=== PATIENT | female | born 1955 | race Caucasian/White ===

== ENCOUNTER → 2017-06-05 | Outpatient (CLI) | payer BC ==
--- NOTE | 2017-06-05 17:52 | RAD ---
EXAM: MAMMO GABRIELLA SCREENING BILATERAL. HISTORY: Screening. COMPARISON: Breast mammogram from 2015 and 2014. FINDINGS: 2-D and 3-D tomosynthesis mammograms were obtained of both breasts in the CC and MLO projections. Computer-aided detection (CAD) was utilized. Breast density category C: The breasts are heterogeneously dense which may obscure small masses. The nipples and skin are within normal limits. Stable bilateral round masses are seen dating back to 2014. No suspicious calcifications, spiculated masses or areas of architectural distortion. IMPRESSION: No mammographic evidence of malignancy. Stable mammogram. BI-RADS CATEGORY: 2 BENIGN FINDING RECOMMENDED FOLLOW-UP: 12M 12 MONTH FOLLOW-UP PQRS compliance statement: Patient information was entered into a reminder system with a target due date 06/05/2018 for the next mammogram. Mammography is a sensitive method for finding small breast cancers, but it does not detect them all and is not a substitute for careful clinical examination. A negative mammogram does not negate a clinically suspicious finding and should not result in delay in biopsying a clinically suspicious abnormality. "Our facility is accredited by the [employer] Mammography Program."
== END | disposition home or self-care (01) ==
LOC: MAMMO 14:46
PROVIDERS: ATTEND Physician Assistant
DX: Z12.31 Encounter for screening mammogram for malignant neoplasm of breast (principal); Z85.3 Personal history of malignant neoplasm of breast
CPT/HCPCS: 77063; G0202; 77067

== ENCOUNTER → 2017-07-10 | Outpatient (CLI) | payer BC ==
--- NOTE | 2017-07-10 15:35 | RAD ---
Chest, 2 views, 07/10/2017: History: Dyspnea The heart size and pulmonary vascularity are normal. There appears to be minimal atelectasis along the dome of the left hemidiaphragm. No pulmonary consolidation is seen. There is no evidence of pleural fluid. Moderate spurring is present in the spine. IMPRESSION: Minimal left basilar atelectasis.
== END | disposition home or self-care (01) ==
LOC: PMG 14:50
PROVIDERS: ATTEND Physician Assistant
DX: J98.11 Atelectasis (principal)
CPT/HCPCS: 71046

== ENCOUNTER → 2018-06-10 | Outpatient (CLI) | payer BC ==
--- NOTE | 2018-06-11 09:16 | RAD ---
DATE: 06/10/2018 EXAM: MAMMO GABRIELLA SCREENING BILATERAL HISTORY: Routine screening COMPARISON: 06/05/2017 This study was interpreted with the benefit of Computerized Aided Detection (CAD). Breast Density: HETERO The breast parenchyma is heterogenously dense, which could reduce sensitivity of mammography. Breast parenchyma level C. FINDINGS: The breasts are heterogeneously dense in a multinodular pattern. There are numerous smooth nodules in both breasts. Bilateral smooth nodule such as this are most commonly benign. No spiculated mass or architectural distortion is evident. No enlarging breast densities are seen. Benign type calcifications are present. No suspicious microcalcifications have developed. IMPRESSION: Stable mammograms without evidence of malignancy. BI-RADS CATEGORY: 2 BENIGN FINDING(S) RECOMMENDED FOLLOW-UP: 12M 12 MONTH FOLLOW-UP PQRS compliance statement: Patient information was entered into a reminder system with a target due date for the next mammogram. Mammography is a sensitive method for finding small breast cancers, but it does not detect them all and is not a substitute for careful clinical examination. A negative mammogram does not negate a clinically suspicious finding and should not result in delay in biopsying a clinically suspicious abnormality. "Our facility is accredited by the [employer] Mammography [employer]."
== END | disposition home or self-care (01) ==
LOC: MAMMO 14:56
PROVIDERS: ATTEND Physician Assistant
DX: Z12.31 Encounter for screening mammogram for malignant neoplasm of breast (principal)
CPT/HCPCS: 77063; 77067

== ENCOUNTER → 2018-06-12 | Outpatient (CLI) | payer BC ==
--- NOTE | 2018-06-13 08:15 | RAD ---
Bone densitometry scan, 06/12/2018: HISTORY: Osteopenia, probably a therapy The lumbar spine and right hip were examined utilizing a DEXA technique. The bone mineral density in the lumbar spine as measured from the L1-L4 levels is 1.20 g/sq cm yielding a T score of 1.4. This yields a T score of 0.2 which is in the normal range. This represents a significant improvement since the 02/22/2015 study at which time the T score was -1.2. The total T score at the right hip is -1.2 compatible with osteopenia. IMPRESSION: 1. Improving bone mineral density in the lumbar spine which is now in the normal range. 2. Minimal osteopenia at the right hip. Electronically signed by: Brendan Ro MD (06/13/2018 8:11 AM) [facility]
== END | disposition home or self-care (01) ==
LOC: EDBD → DXRAD 15:05
PROVIDERS: ATTEND Physician Assistant
DX: M85.88 Other specified disorders of bone density and structure, other site (principal)
CPT/HCPCS: 77080

== ENCOUNTER → 2018-12-30 | Outpatient (CLI) | payer BC ==
--- NOTE | 2018-12-30 16:25 | CARD ---
MR#: [id number] Date of Study: 12/30/2018 Ordering Physician: LAI MOYER, Referring Physician: LAI MOYER, Tech: Rhina Camp APPROVED REPORT EXAM: Two-dimensional and M-mode echocardiogram with Doppler and color Doppler. Other Information Quality : AverageHR: 70bpm Rhythm : NSR INDICATION Atalissa Insufficiency RISK FACTORS Hypertension Hyperlipidemia 2D DIMENSIONS Left Atrium(2D)3.6 (1.6-4.0cm)IVSd1.1 (0.7-1.1cm) Aortic Root(2D)3.2 (2.0-3.7cm)LVDd5.7 (3.9-5.9cm) LVOT Diameter2.1 (1.8-2.4cm)PWd1.0 (0.7-1.1cm) LVDs4.7 (2.5-4.0cm)FS (%) 21.6 % SV77.8 ml Aortic Valve AoV Peak Abraham.116.4cm/sAoV VTI26.0cm AO Peak GR.5.4mmHgLVOT Peak Abraham.112.7cm/s LVOT VTI 22.48cmAO Mean GR.4mmHg ENZO (VMAX)3.37eg0IFG (VTI)3.03cm2 Mitral Valve MV E Msotdqws37.4cm/sMV DECEL RSYT980em MV A Oedyzzmk64.9cm/sE/A Ratio1.4 Pulmonary Valve PV Peak Kliyeidc28.7cm/sPV Peak Grad.4mmHg Tricuspid Valve RAP SBVPVHJC3obJsZZ Peak Gr.18mmHg XHBW14opGf Pulmonary Vein S1 Wtyomorr08.8cm/sD2 Zdulvsjs49.4cm/s LEFT VENTRICLE The Left Ventricle is borderline dilated. There is borderline concentric left ventricular hypertrophy . The systolic function is mildly decreased. The Ejection Fraction is 40-45%. There is mild global hy pokinesis of the left ventricle. Transmitral Doppler flow pattern is Grade II-pseudonormal filling dy namics. RIGHT VENTRICLE The right ventricle is normal size. There is normal right ventricular wall thickness. The right ventr icular systolic function is normal. ATRIA The left atrium size is normal. The right atrium size is normal. The interatrial septum is intact wit h no evidence for an atrial septal defect or patent foramen ovale as noted on 2-D or Doppler imaging. AORTIC VALVE The aortic valve is normal in structure and function. Doppler and Color Flow revealed no significant aortic regurgitation. There is no significant aortic valvular stenosis. MITRAL VALVE The mitral valve is normal in structure and function. There is no evidence of mitral valve prolapse. There is no mitral valve stenosis. Doppler and Color-flow revealed moderate mitral regurgitation. TRICUSPID VALVE The tricuspid valve is normal in structure and function. Doppler and Color Flow revealed no tricuspid valve regurgitation noted. There is no tricuspid valve prolapse or vegetation. There is no tricuspid valve stenosis. PULMONIC VALVE The pulmonic valve is not well visualized. Doppler and Color Flow revealed no pulmonic valvular regur gitation. GREAT VESSELS The aortic root is normal in size. The IVC is normal in size and collapses >50% with inspiration. PERICARDIAL EFFUSION There is no evidence of significant pericardial effusion. Critical Notification Critical Value: No <Conclusion> The Left Ventricle is borderline dilated. The systolic function is mildly decreased. The Ejection Fraction is 40-45%. There is mild global hypokinesis of the left ventricle. There is borderline concentric left ventricular hypertrophy. There is no significant aortic valvular stenosis. Doppler and Color Flow revealed no significant aortic regurgitation. Doppler and Color-flow revealed moderate mitral regurgitation. Doppler and Color Flow revealed no tricuspid valve regurgitation noted. Signed by : Chencho Santillan MD Electronically Approved : 12/30/2018 16:24:22
== END | disposition home or self-care (01) ==
LOC: ECHO 14:55
PROVIDERS: ATTEND Internal Medicine Cardiovascular Disease
DX: I34.0 Nonrheumatic mitral (valve) insufficiency (principal); I87.2 Venous insufficiency (chronic) (peripheral); E78.5 Hyperlipidemia, unspecified; I11.9 Hypertensive heart disease without heart failure
CPT/HCPCS: 93306

== ENCOUNTER → 2019-01-13 | Outpatient (CLI) | payer BC ==
--- NOTE | 2019-01-14 09:09 | RAD ---
MR#: [id number] Date of Study: 01/13/2019 Ordering Physician: LAI MOYER, Referring Physician: LAI MOYER, Tech: Coral Mcadams RDMS, RVT, RTR APPROVED REPORT Patient Location : OUT-PATIENT Indications Lower Extremity Pain : Grayscale images of the bilateral lower extremity greater saphenous veins demonstrate noncompressibil ity suggestive of prior ablation. Cannot rule out chronic thrombus. No obvious reflux is noted at the saphenofemoral junctions. No obvious anterior or posterior accessory saphenous veins visualized. No perforators visualized. Critical Notification Critical Value: No <Conclusion> 1. Probable bilateral prior greater saphenous vein ablations versus chronic thrombus 2. No reflux identified bilaterally in the greater and lesser saphenous veins. Signed by : Christopher Harrison, Electronically Approved : 01/14/2019 09:08:55
== END | disposition home or self-care (01) ==
LOC: US 13:50
PROVIDERS: ATTEND Internal Medicine Cardiovascular Disease
DX: I87.2 Venous insufficiency (chronic) (peripheral) (principal)
CPT/HCPCS: 93970

== ENCOUNTER → 2019-03-12 | Outpatient (CLI) | payer BC ==
[~2019-03-12] VITALS: Ht 172.7 cm; Wt 72.6 kg
[~2019-03-12] MED LIST: REGADENOSON 0.4 MG/5 ML DISP.SYRIN. IV ONE
--- NOTE | 2019-03-12 16:27 | RAD ---
MR#: [id number] Date of Study: 03/12/2019 Ordering Physician: LAI THOMAS Referring Physician: FRANCESCA JAIME Tech: SHANELL Barroso APPROVED REPORT Test Type: Pharmacological Stress Nurse/Tech: SHANELL Barroso Test Indications: Leg swelling Cardiac History: none Medications: see EHR Medical History: see EHR Resting ECG: SR Resting Heart Rate: 54 bpm Resting Blood Pressure: 147/81mmHg Pretest Chest Pain: None Nurse/Tech Notes Consent: The procedure was explained to the patient in lay terms. Informed consent was witnessed. Shahram eout was entered into [employer]. History and Stress Test performed by SHANELL Barroso Pharm. Details Pharmacologic stress testing was performed using 0.4mg per 5ml of regadenoson given intravenously ove r 7-10 seconds. POST EXERCISE Reason for Termination: Infusion complete Max HR: 111 bpm Max Blood Pressure: 137/71mmHg Blood Pressure response to exercise: Normal blood pressure response during stress. Chest Pain: No. INTERPRETATION Stress EKG Conclusion: Baseline EKG showed sinus rhythm. Non-diagnostic changes at peak stress. No arrhythmias. Imaging Protocol IMAGE PROTOCOL: Rest Tc-99m/stress Tc-99m 1 day Rest: Stress: Viability: Radiopharm.Tc99m YcsgcdibuCq34k Sestamibi Nyjt17pTk 33mCi Duration 15min. 10min. Img Date 03/12/2019 03/12/2019 Inj-Img Dtds10mtf. 60min. Rest Admin Site:IV - Right WristAdministrator: SHANELL Barroso Stress Admin Site: IV - Right WristAdministrator: SHANELL Barroso STRESS DATA End Diast. Vol.111.0mlAv. Heart Rate75.0bpm End Syst. Vol.49.0mlCO Index BSA0.0L/min Myocardial Uzpo605.0gEject. Jpqrqofk28.0% Stress Rates Pk. Fill Rate2.42EDV/secLVtime Pk. Fill 228.82msec Pk. Empty Rate3.41ESV/secLVtime Pk. Yotcd788.37msec 07/10 Pk. Fill0.67EDV/sec Stress Scores Regional WT1.00Summed WT8.00 Regional WM0.00Summed WM17.00 Study quality was good. Left Ventricular size was Normal at Rest and Stress. Lung uptake was . Left Ventricular ejection fraction is 56%. The rest and stress images show normal perfusion, normal contraction and thickening. LV Perf. Quant 17 Seg. SSS1.00 17 Seg. SRS2.00 17 Seg. SDS0.00 Stress Defect Extent (% LAD)0.00Rest Defect Extent (% LAD)0.00Rev. Defect Extent (% LAD)0.00 Stress Defect Extent (% LCX) 5.00Rest Defect Extent (% LCX)17.50Rev. Defect Extent (% LCX)0.00 Stress Defect Extent (% RCA)0.00Rest Defect Extent (% RCA)0.00Rev. Defect Extent (% RCA)0.00 Stress Defect Extent (% MODESTO)0.90Rest Defect Extent (% MODESTO)3.00Rev. Defect Extent (% MODESTO)0.00 Conclusion 1. Regadenoson cardioisotope stress test did not show any evidence of ischemia or infarct. 2. Normal left ventricular systolic function with ejection fraction calculated at 56%. 3. Low risk for cardiac events. Signed by : Lai Thomas, Electronically Approved : 03/12/2019 16:26:55
== END | disposition home or self-care (01) ==
LOC: NM 07:50
PROVIDERS: ATTEND Internal Medicine Cardiovascular Disease
DX: I42.9 Cardiomyopathy, unspecified (principal); I10 Essential (primary) hypertension; M79.89 Other specified soft tissue disorders
CPT/HCPCS: 78452; 93017; A9500

== ENCOUNTER → 2019-06-11 | Outpatient (CLI) | payer BC ==
--- NOTE | 2019-06-12 08:52 | RAD ---
DATE: June 11, 2019 EXAM: MAMMO GABRIELLA SCREENING BILATERAL HISTORY: Screening study. COMPARISON: 2016 and 2018 This study was interpreted with the benefit of Computerized Aided Detection (CAD). 2-D digital mammographic views of both breasts were performed in the CC and MLO projections. 3-D digital tomosynthesis images of both breasts were performed in the CC and MLO projections and reviewed on a computer workstation. FINDINGS: Breast Density: HETERO The breast parenchyma is heterogenously dense, which could reduce sensitivity of mammography. Breast parenchyma level C.. Bilateral breast nodularity is stable. There are no new dominant suspicious masses, suspicious microcalcifications or evidence of architectural distortion. IMPRESSION: No mammographic indicators for malignancy. BI-RADS CATEGORY: 2 BENIGN FINDING RECOMMENDED FOLLOW-UP: 12M 12 MONTH FOLLOW-UP PQRS compliance statement: Patient information was entered into a reminder system with a target due date June 12, 2020 for the next mammogram. Mammography is a sensitive method for finding small breast cancers, but it does not detect them all and is not a substitute for careful clinical examination. A negative mammogram does not negate a clinically suspicious finding and should not result in delay in biopsying a clinically suspicious abnormality. "Our facility is accredited by the [employer] Mammography Program." The patient's breast density may affect the ability of mammography to detect breast cancer. There are 4 categories of breast density, A, B, C and D. Breast density A means that most of the breast tissue is replaced with adipose tissue and therefore is not dense. Breast density B means that the breast tissue is mildly dense and scattered. Breast density C means that the breast tissue is heterogeneously dense. Breast density D means that the breast tissue is very dense. Breast densities especially C and D may decrease the sensitivity of mammography to detect breast cancer. Therefore, the patient may benefit from 3-D breast mammography (3D breast tomography) as a part of their screening mammogram. Insurance may or may not pay for this additional imaging. The patient's breast density based on today's mammogram is category C.
== END | disposition home or self-care (01) ==
LOC: MAMMO 13:55
PROVIDERS: ATTEND Physician Assistant
DX: Z12.31 Encounter for screening mammogram for malignant neoplasm of breast (principal)
CPT/HCPCS: 77063; 77067

== ENCOUNTER → 2019-09-14 | Outpatient (CLI) | payer BC ==
--- NOTE | 2019-09-14 17:27 | RAD ---
EXAM: Pelvis and right hip, 2 views. HISTORY: Pain. COMPARISON: None. FINDINGS: A frontal view of the pelvis and frog-leg view the right hip are obtained. There is no fracture, dislocation or subluxation. There is osteitis pubis. There is degenerative facet arthropathy at the lumbosacral junction. IMPRESSION: No acute osseous finding. Osteitis pubis. Electronically signed by: Virginia Montgomery MD (09/14/2019 5:24 PM) [id number]
== END | disposition home or self-care (01) ==
LOC: RAD 16:19
PROVIDERS: ATTEND Family Medicine
DX: M85.38 Osteitis condensans, other site (principal); M47.817 Spondylosis without myelopathy or radiculopathy, lumbosacral region
CPT/HCPCS: 73502

== ENCOUNTER → 2020-05-17 | Outpatient (CLI) | payer MEDICARE, BC ==
--- NOTE | 2020-05-17 17:00 | RAD ---
EXAM: KNEE BILAT 2V 05/17/2020 12:00 AM CLINICAL INDICATION:Status post fall COMPARISON:None TECHNIQUE:Standing AP view of the knees and oblique and lateral view of the right and left knee FINDINGS: Right knee: No acute fracture. Alignment is normal. Joint spaces are maintained. There are small lateral and patellofemoral osteophytes. No joint effusion or soft tissue abnormality. Left knee: No acute fracture. Alignment is normal. Joint spaces are maintained. There are tiny patellofemoral osteophytes. No joint effusion. IMPRESSION: 1. No acute osseous abnormality. 2. Mild bilateral degenerative joint disease. Electronically signed by: Patty Muñoz MD (05/17/2020 4:56 PM) [id number]
== END ==
LOC: PMG 10:13
PROVIDERS: ATTEND Physician Assistant
DX: M17.0 Bilateral primary osteoarthritis of knee (principal); M25.762 Osteophyte, left knee; M25.761 Osteophyte, right knee
CPT/HCPCS: 73560

== ENCOUNTER → 2020-05-24 | Outpatient (CLI) | payer MEDICARE, BC | LOC: LAB 14:51 | PROVIDERS: ATTEND Physician Assistant | DX: U07.1 COVID-19 (principal) | CPT/HCPCS: U0003 ==

== ENCOUNTER → 2020-06-13 | Outpatient (CLI) | payer MEDICARE, BC ==
--- NOTE | 2020-06-13 16:34 | RAD ---
BILATERAL SCREENING MAMMOGRAM, 3-D History: Routine screening. Comparison: 05/29/2016, 06/05/2017, 06/10/2018, 06/11/2019. Technique: MLO and CC digital tomosynthesis (3D) images obtained. Radiologist reviewed these images on dedicated workstation. Findings: Breast Tissue Density C : The breasts are heterogeneously dense, which may obscure small masses. There are no dominant masses, suspicious microcalcifications, or architectural distortion. IMPRESSION: No mammographic evidence of malignancy. Recommend routine screening. BI-RADS category 1: Negative. The images were reviewed with computer-aided detection. Patient information is entered into reminder system with a target due date for the next screening mammogram. Mammography is the most sensitive method for finding small breast cancers, but it does not detect them all and is not a substitute for careful clinical examination. A negative mammogram does not negate a clinically suspicious finding and should not result in delay in biopsying a clinically suspicious abnormality. "Our facility is accredited by the [employer] Mammography Program." Electronically signed by: Antonio Alexander MD (06/13/2020 4:31 PM) [id number]
== END ==
LOC: MAMMO 11:08
PROVIDERS: ATTEND Physician Assistant
DX: Z12.31 Encounter for screening mammogram for malignant neoplasm of breast (principal)
CPT/HCPCS: 77063; 77067

== ENCOUNTER → 2020-07-13 | Outpatient (CLI) | payer MEDICARE, BC ==
--- NOTE | 2020-07-13 14:59 | RAD ---
EXAM: DUAL ENERGY X-RAY ABSORPTIOMETRY (DEXA). HISTORY: Postmenopausal screening. Osteoporosis. FINDINGS: The lowest measured T-score is -1.3 in the right hip, based on a bone mineral density of 0. 791 g/cm^2. Refer to the worksheets for full detail. There has been a 0.5 percent decrease in density of the right hip and 8.2 percent increase in density of the lumbar spine compared to a study performed 05/06/2013. IMPRESSION: 1. Low bone mass. Bone mineral density yields a T-score between -1.0 and -2.5. Fracture risk is incre ased. 2. FRAX report: Not calculated. METHODOLOGY: Dual energy x-ray absorptiometry was performed to measure bone mineral density. The foll owing analysis is based on the 2019 Official Positions of the International Society for Clinical Dens itometry: Measurements of the hips and the average of L1-L4 are preferred. When the spine and/or hip cannot be feasibly measured or interpreted, or in the setting of hyperparathyroidism, distal radial bone minera l density may be measured. The lumbar spine T-score is based on the average bone mineral density of L1-L4. In the setting of art ifact or anatomic abnormality, some lumbar levels may be excluded, and the remaining levels used for calculation. A single lumbar level is not used for diagnosis, and if only a single level is available for assessment, another anatomic site will be used to assign a diagnosis. The hip T-score is based on the bone mineral density measurement of the femoral neck or total proxima l femur of either side, whichever is lowest. Bilateral mean values are not used for diagnosis. The forearm T-score is derived from 33% of the distal radius of the nondominant forearm. Electronically signed by: Virginia Montgomery MD (07/13/2020 2:56 PM) [id number]
== END ==
LOC: DXRAD 13:09
PROVIDERS: ATTEND Family Medicine
DX: M81.8 Other osteoporosis without current pathological fracture (principal); M89.9 Disorder of bone, unspecified
CPT/HCPCS: 77080

== ENCOUNTER 2021-01-03 13:47 | Emergency (ER) | payer MEDICARE, BC ==
[~2021-01-03] VITALS: Ht 172.7 cm; Wt 73.6 kg
[2021-01-03 14:03] VITALS: BP 138/84
[2021-01-03] MEDS ORDERED: IV NORMAL SALINE 1,000ML 1,000 ML IV ONE (14:30)
[2021-01-03 14:31] LABS: BASO % 1 % (0-3); EOS # 0.1 x10^3/uL (0.0-0.7); EOS % 1 % (0-3); HEMATOCRIT 38.5 % (36.0-47.0); LYMPH # 1.3 x10^3/uL (1.0-4.8); LYMPH % 17 % (24-48); MEAN CORPUSCULAR HEMOGLOBIN 32 pg (25-35); MEAN CORPUSCULAR HGB CONC 34 g/dL (31-37); MEAN CORPUSCULAR VOLUME 96 fL (79-100); MONO # 0.5 x10^3/uL (0.0-1.1); MONO % 6 % (0-9); NEUT # 5.7 x10^3uL (1.8-7.7); NEUT % 76 % (31-73); PLATELET COUNT 317 x10^3/uL (140-400); RED BLOOD COUNT 4.01 x10^6/uL (3.50-5.40); RED CELL DISTRIBUTION WIDTH 13.5 % (11.5-14.5); WHITE BLOOD COUNT 7.6 x10^3/uL (4.0-11.0)
[2021-01-03 14:35] LABS: ALBUMIN 4.2 g/dL (3.4-5.0); ALBUMIN/GLOBULIN RATIO 1.2 (1.0-1.7); CALCIUM 9.7 mg/dL (8.5-10.1); CREATININE 0.8 mg/dL (0.6-1.0); POTASSIUM 4.3 mmol/L (3.5-5.1); TOTAL BILIRUBIN 0.3 mg/dL (0.2-1.0); TOTAL PROTEIN 7.7 g/dL (6.4-8.2)
--- NOTE | 2021-01-03 14:37 | PHYS DOC ---
Past History Past Medical History: High Cholesterol, Hypertension Past Surgical History: Other Additional Past Surgical Histo: hernia repair; varicose vein repair in bilat legs Alcohol Use: None General Adult EDM: Chief Complaint: DIZZY/LIGHT HEADED HPI: HPI: Patient is a 65-year-old female presents with dizziness since Saturday. Patient states "I just feel kind of floaty in my head". "I kind of felt like I have a buzz". Patient states that normally symptoms resolve when she sits down today they did not. Patient is also reporting a headache and states that pain is worse with lying down. Denies taking anything for headache prior to arrival. Denies chest pain or shortness of breath. Denies nausea/vomiting/diarrhea. Denies trouble with balance. Neuro exam is negative. Patient has history of hypertension, high cholesterol Review of Systems: Review of Systems: Constitutional: Denies fever or chills Eyes: Denies change in visual acuity HENT: Denies nasal congestion or sore throat Respiratory: Denies cough or shortness of breath Cardiovascular: Denies chest pain or edema GI: Denies abdominal pain, nausea, vomiting, bloody stools or diarrhea : Denies dysuria Musculoskeletal: Denies back pain or joint pain Integument: Denies rash Neurologic: Reports headache, dizziness. Denies focal weakness or sensory changes Endocrine: Denies polyuria or polydipsia Lymphatic: Denies swollen glands Psychiatric: Denies depression or anxiety Allergies: Allergies: Allergies Coded Allergies Type Severity Reaction Last Updated Verified hydrocodone Allergy Mild n/V 03/12/19 Yes Physical Exam: PE: Constitutional: Well developed, well nourished, no acute distress, non-toxic appearance. [] HENT: Normocephalic, atraumatic, bilateral external ears normal, oropharynx moist, no oral exudates, nose normal. [] Eyes: PERRLA, EOMI, conjunctiva normal, no discharge. [] Neck: Normal range of motion, no tenderness, supple, no stridor. [] Cardiovascular:Heart rate regular rhythm, no murmur [] Lungs & Thorax: Bilateral breath sounds clear to auscultation [] Abdomen: Bowel sounds normal, soft, no tenderness, no masses, no pulsatile masses. [] Skin: Warm, dry, no erythema, no rash. [] Back: No tenderness, no CVA tenderness. [] Extremities: No tenderness, no cyanosis, no clubbing, ROM intact, no edema. [] Neurologic: Alert and oriented X 3, normal motor function, normal sensory function, no focal deficits noted. [] Psychologic: Affect normal, judgement normal, mood normal. [] Current Patient Data: Vital Signs: Vital Signs Date Time Temp Pulse Resp B/P (MAP) Pulse Ox O2 Delivery O2 Flow Rate FiO2 01/03/21 14:03 80 16 138/84 (102) 97 Radiology/Procedures: Radiology/Procedures: []EXAM: CT head without contrast INDICATION: Dizziness COMPARISON: None TECHNIQUE: Axial CT imaging through the head without intravenous contrast. One or more of the following individualized dose reduction techniques were utilized for this examination: 1. Automated exposure control 2. Adjustment of the mA and/or kV according to patient size 3. Use of iterative reconstruction technique. FINDINGS: The ventricles and sulci are normal. [place]-white matter differentiation is maintained. There is no intracranial hemorrhage, acute infarct, or mass lesion. Basal cisterns are clear. The skull and scalp are intact. Paranasal sinuses and mastoid air cells are clear. Globes and orbits are intact. IMPRESSION: No acute intracranial abnormality. Electronically signed by: Patty Muñoz MD (01/03/2021 3:03 PM) [id number] Heart Score: C/O Chest Pain: No Risk Factors: Risk Factors: DM, Current or recent (<one month) smoker, HTN, HLP, family history of CAD, obesity. Risk Scores: Score 0 - 3: 2.5% MACE over next 6 weeks - Discharge Home Score 4 - 6: 20.3% MACE over next 6 weeks - Admit for Clinical Observation Score 7 - 10: 72.7% MACE over next 6 weeks - Early Invasive Strategies Course & Med Decision Making: Course & Med Decision Making Pertinent Labs and Imaging studies reviewed. (See chart for details) [] 65-year-old female presents with dizziness and headache since Saturday. Patient was seen at urgent care prior to coming into the emergency room. Patient denies chest pain or shortness of breath. Neuro exam is negative. CT of head was negative for intracranial hemorrhage, acute infarct, or mass lesion. All labs are unremarkable. Patient given meclizine to help with dizziness. Instructed patient to follow-up with PCP if dizziness continues. Patient given strict return precautions. Patient is hemodynamically stable. Patient is appreciative and okay with discharge plan. Dragon Disclaimer: Dragon Disclaimer: This electronic medical record was generated, in whole or in part, using a voice recognition dictation system. Departure Departure: Impression: Primary Impression: Dizziness Disposition: HOME / SELF CARE / HOMELESS Condition: STABLE Referrals: HUGO DIOR MD (PCP) Patient Instructions: Dizziness, [id number] Additional Instructions: You are seen emergency room for dizziness. All of your labs were unremarkable. Your EKG was negative for cardiac abnormalities. Please follow-up with your PCP if dizziness continues. Please return the emergency room if you have worsening symptoms or concerns. EMERGENCY DEPARTMENT GENERAL DISCHARGE INSTRUCTIONS Thank you for coming to [facility] (ED) today and trusting us with you care. We trust that you had a positivie experience in our Emergency Department. If you wish to speak to the department management, you may call the director at [phone]. YOUR FOLLOW UP INSTRUCTIONS ARE FOLLOWS: 1. Do you have a private Doctor? If you do not have a private doctor, please ask for a resource list of physicians or clinics that may be able to assist you with follow up care. 2. The Emergency Physician has interpreted your x-rays. The X-Ray specialist will also review them. If there is a change in the findings, you will be notified in 48 hours when at all possible. 3. A lab test or culture has been done, your results will be reviewed and you will be notified if you need a change in treatment. ADDITIONAL INSTRUCTIONS AND INFORMATION: 1. Your care today has been supervised by a physician who is specially trained in emergency care. Many problems require more than one evaluation for a complete diagnosis and treatment. We recommend that you schedule your follow up appointment as recomm ended to ensure complete treatment of you illness or injury. If you are unable to obtain follow up care and continue to have a problem, or if your condition worsens, we recommend that you return to the ED. 2. We are not able to safely determine your condition over the phone nor are we able to give sound medical advice over the phone. For these safety reasons, if you call for medical advice we will ask you to come to the ED for further evaluation. 3. If you have any questions regarding these discharge instructions please call the ED at [phone]. SAFETY INFORMATION: In the interest of safety, wellness, and injury prevention; we encourage you to wear your sealbelt, if you smoke; quite smoking, and we encourage family to use a protective helmet for bicycling and other sporting events that present an increased risk for head injury. IF YOUR SYMPTOMS WORSEN OR NEW SYMPTOMS DEVELOP, OR YOU HAVE CONCERNS ABOUT YOUR CONDITION; OR IF YOUR CONDITION WORSENS WHILE YOU ARE WAITING FOR YOUR FOLLOW UP APPOINTMENT; EITHER CONTACT YOUR PRIMARY CARE DOCTOR, THE PHYSICIAN WHOSE NAME AND NUMBER YOU WERE GIVEN, OR RETURN TO THE ED IMMEDIATELY. BRIANNE FERNÁNDEZ T[employer] T[employer]ER FERRYBOAT Jan 03, 2021 14:37
--- NOTE | 2021-01-03 15:05 | RAD ---
EXAM: CT head without contrast INDICATION: Dizziness COMPARISON: None TECHNIQUE: Axial CT imaging through the head without intravenous contrast. One or more of the following individualized dose reduction techniques were utilized for this examinat ion: 1. Automated exposure control 2. Adjustment of the mA and/or kV according to patient size 3. Use of iterative reconstruction technique. FINDINGS: The ventricles and sulci are normal. [place]-white matter differentiation is maintained. There is no int racranial hemorrhage, acute infarct, or mass lesion. Basal cisterns are clear. The skull and scalp ar e intact. Paranasal sinuses and mastoid air cells are clear. Globes and orbits are intact. IMPRESSION: No acute intracranial abnormality. Electronically signed by: Patty Muñoz MD (01/03/2021 3:03 PM) [id number]
[2021-01-03 15:08] LABS: BILIRUBIN,URINE NEG (NEG); CLARITY,URINE CLEAR; COLOR,URINE YELLOW; GLUCOSE,URINE NEG (NEG); NITRITE,URINE NEG (NEG); UROBILINOGEN,URINE 0.2 mg/dL (0.2 mg/dL)
[2021-01-03 15:11] LABS: BACTERIA,URINE 0 /HPF (0-FEW); RBC,URINE 0 /HPF (0-2); SQUAMOUS EPITHELIAL CELL,UR OCC /LPF; WBC,URINE OCC /HPF (0-4)
[2021-01-03] MEDS ORDERED: MECLIZINE 12.5 MG TABLET. PO ONE (16:15)
--- NOTE | 2021-01-03 20:47 | EKG ---
[address] [address] Test Date: 2021-01-03 Test Time: 14:14:20 Pat Name: ESTEE DIAZ Department: Room: Gender: F [employer] Test Engineer: SAMI : [id number] Requested By: BRIANNE FERNÁNDEZ Order Number: [id number] Reading MD: Measurements Intervals [place] Rate: 83 P: 41 AK: 192 QRS: 25 QRSD: 136 T: 128 QT: 416 QTc: 495 Interpretive Statements SINUS RHYTHM ATRIAL PREMATURE COMPLEX(ES) LEFT BUNDLE BRANCH BLOCK ABNORMAL ECG RI6.02 No previous ECG available for comparison
== END 2021-01-03 16:40 | disposition home or self-care (01) ==
LOC: ER 13:47
DX: R42 Dizziness and giddiness (principal); R51.9 Headache, unspecified; E78.00 Pure hypercholesterolemia, unspecified; I10 Essential (primary) hypertension; Z88.5 Allergy status to narcotic agent
CPT/HCPCS: 36415; 70450; 80053; 81001; 85025; 93005; 96360; 99285; J7030

== ENCOUNTER → 2021-08-14 | Outpatient (CLI) | payer MEDICARE, BC ==
--- NOTE | 2021-08-14 17:30 | RAD ---
Bilateral digital screening 2-D and 3-D (tomosynthesis) mammogram: Reason for examination: Routine screening. Comparison is made to previous study dated Bilateral mammograms in CC and oblique projections were obtained with 2-D imaging and 3-D tomosynthes is imaging and reviewed on the workstation. Interpretation was made with the benefit of CAD. Findings: Breast density: Category C. The breasts are heterogeneously dense, which may obscure small masses. There are no suspicious masses, malignant appearing calcifications or architectural distortion. There are nipple small bilateral oval circumscribed masses. The largest measures 9 mm and is in the 11:30 position of the right breast approximately 2 cm from the nipple. Impression: No evidence of malignancy. ASSESSMENT: BI-RADS 2. Benign findings. Recommendations: Routine screening mammograms. This patient's information has been entered into a reminder system for the patient to be notified wit h the results of her examination and a target date for the next mammogram. Your patient's mammogram demonstrates that she has dense breast tissue (breast density category C or D), which could hide abnormalities, and if she has other risk factors for breast cancer that have bee n identified, she might benefit from supplemental screening tests that may be suggested by you as her ordering physician. Dense breast tissue, in and of itself, is a relatively common condition. Therefo re, this information is not provided to cause undue concern, but rather to raise your awareness and t o promote discussion with your patient regarding the presence of other risk factors, in addition to d ense breast tissue. Electronically signed by: Ashley Jang MD (08/14/2021 5:28 PM) [id number]
== END ==
LOC: MAMMO 11:17
PROVIDERS: ATTEND Family Medicine
DX: Z12.31 Encounter for screening mammogram for malignant neoplasm of breast (principal)
CPT/HCPCS: 77063; 77067

== ENCOUNTER → 2021-10-30 | Outpatient (CLI) | payer MEDICARE, BC ==
--- NOTE | 2021-10-30 11:06 | RAD ---
XR CHEST 2V History: Reason: chest pain and cough / Spl. Instructions: / History: Comparison: July 10, 2017 Findings: Hyperinflation. No consolidation or pleural effusion. Normal heart size. No pneumothorax. Impression: 1. No acute cardiopulmonary process. Electronically signed by: Mauricio Don DO (10/30/2021 11:03 AM) [id number]
== END ==
LOC: RAD 10:42
PROVIDERS: ATTEND Physician Assistant Medical
DX: R07.9 Chest pain, unspecified (principal)
CPT/HCPCS: 71046